=== PATIENT | male | born 1990 | race Caucasian/White ===

== ENCOUNTER 2018-08-12 02:20 | Outpatient (CLI) | payer MEDICAID, SELFPAY ==
--- NOTE | 2018-08-12 14:10 | MERGE_ITS ---
*[facility]* *[facility]* [address] [place] [address] Date of study: 08/12/2018 Transthoracic Echocardiography M-mode, complete 2D, complete spectral Doppler, and color Doppler *STUDY CONCLUSIONS* Summary: 1. Left ventricle: The cavity size was normal. Wall thickness was normal. Systolic function was normal. The estimated ejection fraction was 60-65%. Wall motion was normal; there were no regional wall motion abnormalities. 2. Right ventricle: The cavity size was normal. Wall thickness was normal. Systolic function was normal. 3. Mitral valve: Mildly thickened leaflets. There was mild regurgitation. 4. Inferior vena cava: The vessel was patent and normal in size. The respirophasic diameter changes were in the normal range (greater than or equal to 50%), consistent with normal central venous pressure. *PATIENT PRESENTATION* Height: 177.8cm ((70in) ) S/D Pressure: 134 / 88 Weight: 83.9kg ((184.6lb) ) BSA: 2.05m^2 Test start time: 02:10 PM. Test stop time: 03:10 PM. 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 This study was interpreted by [facility]. Pertinent images and digital data are archived for permanent storage and are available for subsequent review. No prior study was available for comparison. Study status: Routine. Transthoracic echocardiography. M-mode, complete 2D, complete spectral Doppler, and color Doppler. A Transthoracic Echocardiogram was performed. Scanning was performed from the parasternal, apical, subcostal, and suprasternal notch acoustic windows. Images were obtained using an [id number] cardiac ultrasound machine. Image quality was adequate. Study completion: The patient tolerated the procedure well. There were no complications. History: PMH: Family history of aortic valve disease z82.49 family hx of ischemic heart disease and other of circulatory system *CARDIAC ANATOMY* Left ventricle: The cavity size was normal. Wall thickness was normal. Systolic function was normal. The estimated ejection fraction was 60-65%. Wall motion was normal; there were no regional wall motion abnormalities. Diastolic parameters were normal. There was no evidence of elevated ventricular filling pressure by Doppler parameters. Aortic valve: Trileaflet; normal thickness leaflets. Mobility was not restricted. Doppler: Transvalvular velocity was within the normal range. There was no stenosis. There was no significant regurgitation. VTI ratio of LVOT to aortic valve: 0.72. Valve area (VTI): 3cm^2. Indexed valve area (VTI): 1.5cm^2/m^2. Peak velocity ratio of LVOT to aortic valve: 0.71. Valve area (Vmax): 3cm^2. Indexed valve area (Vmax): 1.4cm^2/m^2. Mean velocity ratio of LVOT to aortic valve: 0.7. Valve area (Vmean): 2.9cm^2. Indexed valve area (Vmean): 1.4cm^2/m^2. Mean gradient (S): 4.5mm Hg. Peak gradient (S): 7.2mm Hg. Aorta: Aortic root: The aortic root was normal in size. Ascending aorta: The ascending aorta was normal in size. Mitral valve: Mildly thickened leaflets. Mobility was not restricted. Doppler: Transvalvular velocity was within the normal range. There was no evidence for stenosis. There was mild regurgitation. Valve area by pressure half-time: 4.5cm^2. Indexed valve area by pressure half-time: 2.2cm^2/m^2. Left atrium: The atrium was normal in size. Right ventricle: The cavity size was normal. Wall thickness was normal. Systolic function was normal. Pulmonic valve: The pulmonary valve appears to be grossly normal. Doppler: Transvalvular velocity was within the normal range. There was no evidence for stenosis. There was trivial regurgitation. Tricuspid valve: Structurally normal valve. Doppler: Transvalvular velocity was within the normal range. There was no evidence for stenosis. There was trivial regurgitation. Pulmonary artery: The main pulmonary artery was normal-sized. Pulmonary systolic pressure was within the normal range, in the range of 20mm Hg to 25mm Hg. Right atrium: The atrium was normal in size. Pericardium: There was no pericardial effusion. Systemic veins: Inferior vena cava: Well visualized. The vessel was patent and normal in size. The respirophasic diameter changes were in the normal range (greater than or equal to 50%), consistent with normal central venous pressure. Baseline ECG: Normal sinus rhythm. Measurements Left ventricle Value Reference LV ID, ED, PLAX 5.1 cm 3.5 - 6.0 LV ID, ES, PLAX 3.4 cm 2.1 - 4.0 LV PW thickness, ED, PLAX 0.9 cm LV end-diastolic volume, 1-p A2C 138 ml LV ejection fraction, 1-p A2C 65 % LV end-diastolic volume, 1-p A4C 125 ml LV ejection fraction, 1-p A4C 59 % LV e', lateral 0.146 m/sec LV E/e', lateral 3 LV e', medial 0.112 m/sec LV E/e', medial 4 LV e', average 0.129 m/sec LV E/e', average 4 Ventricular septum Value Reference IVS thickness, ED, PLAX 0.9 cm LVOT Value Reference LVOT ID, A-P 2.3 cm LVOT area 4.2 cm^2 LVOT peak velocity, S 0.96 m/sec LVOT mean velocity, S 0.72 m/sec LVOT VTI, S 22.4 cm LVOT peak gradient, S 3.7 mm Hg LVOT mean gradient, S 2.2 mm Hg Stroke volume (SV), LVOT DP 93 ml Stroke index (SV/bsa), LVOT DP 45 ml/m^2 Aortic valve Value Reference Aortic valve peak velocity, S 1.3 m/sec Aortic valve mean velocity, S 1.02 m/sec Aortic valve VTI, S 31.0 cm Aortic mean gradient, S 4.5 mm Hg Aortic peak gradient, S 7.2 mm Hg VTI ratio, LVOT/AV 0.72 Aortic valve area, VTI 3 cm^2 Velocity ratio, peak, LVOT/AV 0.71 Aortic valve area, peak velocity 3 cm^2 Velocity ratio, mean, LVOT/AV 0.7 Aortic valve area, mean velocity 2.9 cm^2 Aortic valve area/bsa, mean velocity 1.4 cm^2/m^2 Aorta Value Reference Aortic root ID, ED 3.5 cm Ascending aorta ID, A-P, S 2.9 cm Left atrium Value Reference LA ID, A-P, ES 3.5 cm LA ID/bsa, A-P 1.7 cm/m^2 <=2.2 LA area, ES, A4C 18 cm^2 8.8 - 23.4 LA area, ES, A2C 20 cm^2 LA volume/bsa, ES, 1-p A4C 29 ml/m^2 LA volume, ES, 2-p 62 ml LA volume/bsa, ES, 2-p 30 ml/m^2 LA/aortic root ratio 0.99 Mitral valve Value Reference Mitral E-wave peak velocity 0.46 m/sec Mitral A-wave peak velocity 0.37 m/sec Mitral deceleration time 168 ms 150 - 230 Mitral pressure half-time 49 ms Mitral E/A ratio, peak 1.23 Mitral valve area, PHT, DP 4.5 cm^2 Pulmonary veins Value Reference Pulmonary vein peak velocity, S 0.46 m/sec Pulmonary vein peak velocity, D 0.5 m/sec Pulmonary vein velocity ratio, peak, 0.93 S/D Tricuspid valve Value Reference Tricuspid regurg peak velocity 2.2 m/sec Tricuspid peak RV-RA gradient 18.5 mm Hg Right atrium Value Reference RA area, ES, A4C 15.1 cm^2 8.3 - 19.5 Legend: (L) and (H) claudia values outside specified reference range. I have personally reviewed the images and have reviewed and edited the reported findings. Electronically signed by Nikkie Bailey 08/12/2018 16:38
== END 2018-08-12 02:40 ==
PROVIDERS: PCP Nurse Practitioner Family; Visit Provider Internal Medicine Cardiovascular Disease
DX: I34.0 Nonrheumatic mitral (valve) insufficiency (principal); Z82.49 Family history of ischemic heart disease and other diseases of the circulatory system
CPT/HCPCS: 93306

== ENCOUNTER 2023-01-05 14:45 | Outpatient (REF) | payer MEDICAID, SELFPAY ==
[2023-01-05 15:51] LABS: HCT 42.5 % (40.0-50.0); HGB 14.5 g/dL (13.5-17.5); MCH 30.5 pg (27.0-33.0); MCHC 34.1 % (32.0-36.0); MCV 90 fL (80-95); MPV 11.2 fL (8.0-11.0); Platelet Count 202 10^3/uL (130-400); RBC 4.75 10^6/uL (4.36-5.78); RDW 12.7 % (11.8-14.1); RDW-SD 41.4 fL; WBC 5.15 10^3/uL (4.4-10.8)
[2023-01-05 15:59] LABS: ALT 38 U/L (16-63); AST 52 U/L (15-37); Albumin 4.3 g/dL (3.4-5.0); Alkaline Phosphatase 28 U/L (46-116); Anion Gap 9.6 mmol/L (3-11); BUN 29 mg/dL (7-18); Bilirubin, Total 0.7 mg/dL (0.2-1.0); CO2 25.4 mmol/L (21.0-32.0); CREATININE 0.9 mg/dL (0.70-1.30); Calcium 9.8 mg/dL (8.5-10.1); Chloride 102 mmol/L (98-107); Cholesterol 172 mg/dL (<200); Estimated GFR 114.93 (mL/min/1.73m2); Glucose 90 mg/dL (74-106); HDL Cholesterol 95 mg/dL (40-60); Potassium 4.1 mmol/L (3.5-5.1); Sodium 137 mmol/L (136-145); Total Protein 7.4 g/dL (6.4-8.2)
[2023-01-05 16:02] LABS: Triglyceride <25 mg/dL (<150)
[2023-01-05 16:17] LABS: LDL CHOLESTEROL 62 mg/dL (<100)
== END 2023-01-05 14:46 | disposition home or self-care (01) ==
LOC: NCHCN 14:45
PROVIDERS: PCP Nurse Practitioner Family; Visit Provider Nurse Practitioner Family
DX: Z00.00 Encounter for general adult medical examination without abnormal findings (principal)
CPT/HCPCS: 80053; 80061; 83721; 85027

== ENCOUNTER 2023-12-16 21:51 | Outpatient (REF) | payer MEDICARE, SELFPAY ==
[2023-12-20 11:18] LABS: Lyme Ab w Rflx to Lyme Confirm Negative (Negative)
== END 2023-12-16 21:52 | disposition home or self-care (01) ==
LOC: LBN 21:51
PROVIDERS: PCP Nurse Practitioner Family; Visit Provider Physician Assistant Medical
DX: L28.2 Other prurigo (principal)
CPT/HCPCS: 86618

== ENCOUNTER 2024-01-11 15:17 | Outpatient (REF) | payer MEDICARE, SELFPAY ==
[2024-01-11 21:41] LABS: ALT 41 U/L (16-63); AST 48 U/L (15-37); Albumin 4.7 g/dL (3.4-5.0); Alkaline Phosphatase 42 U/L (46-116); Anion Gap 9.7 mmol/L (3-11); BUN 33 mg/dL (7-18); Bilirubin, Total 0.81 mg/dL (0.2-1.0); CO2 29.3 mmol/L (21.0-32.0); CREATININE 0.9 mg/dL (0.70-1.30); Chloride 101 mmol/L (98-107); Estimated GFR 114.22 (mL/min/1.73m2); Glucose 84 mg/dL (74-106); Potassium 4.5 mmol/L (3.5-5.1); Sodium 140 mmol/L (136-145); Total Protein 8.4 g/dL (6.4-8.2)
== END 2024-01-11 15:18 | disposition home or self-care (01) ==
LOC: NCHCN 15:17
PROVIDERS: PCP Nurse Practitioner Family; Visit Provider Nurse Practitioner Family
DX: R74.01 Elevation of levels of liver transaminase levels (principal)
CPT/HCPCS: 80053

== ENCOUNTER 2025-01-16 18:42 | Outpatient (REF) | payer OTHER, SELFPAY ==
[2025-01-16 14:25] LABS: HCT 46.9 % (40.0-50.0); HGB 16.0 g/dL (13.5-17.5); MCH 30.9 pg (27.0-33.0); MCHC 34.1 % (32.0-36.0); MCV 91 fL (80-95); MPV 10.5 fL (8.0-11.0); Platelet Count 244 10^3/uL (130-400); RBC 5.17 10^6/uL (4.36-5.78); RDW 11.9 % (11.8-14.1); RDW-SD 39.8 fL; WBC 6.20 10^3/uL (4.4-10.8)
[2025-01-16 15:03] LABS: ALT 34 U/L (16-63); AST 41 U/L (15-37); Albumin 4.5 g/dL (3.4-5.0); Alkaline Phosphatase 62 U/L (46-116); Anion Gap 9.9 mmol/L (3-11); BUN 30 mg/dL (7-18); Bilirubin, Total 0.6 mg/dL (0.2-1.0); CO2 27.1 mmol/L (21.0-32.0); Calcium 9.3 mg/dL (8.5-10.1); Chloride 103 mmol/L (98-107); Estimated GFR 117.63 (mL/min/1.73m2); Glucose 79 mg/dL (74-106); Potassium 4.6 mmol/L (3.5-5.1); Sodium 140 mmol/L (136-145); Total Protein 7.7 g/dL (6.4-8.2)
== END 2025-01-16 18:43 | disposition home or self-care (01) ==
LOC: NCHCN 18:42
PROVIDERS: PCP Nurse Practitioner Family; Visit Provider Nurse Practitioner Family
DX: Z00.00 Encounter for general adult medical examination without abnormal findings (principal)
CPT/HCPCS: 80053; 85027